=== PATIENT | male | born 1995 | race Caucasian/White ===

== ENCOUNTER 2017-12-04 11:17 | Emergency (ER) | payer BC ==
[~2017-12-04] VITALS: Ht 182.9 cm; Wt 124.7 kg
[2017-12-04 11:25] VITALS: BP 167/85
[2017-12-04] MEDS ORDERED: IBUPROFEN 400 MG TABLET. PO ONE (12:00)
--- NOTE | 2017-12-04 12:37 | RAD ---
Right tibia and fibula 2 views 12/04/2017. Reason for exam: Fell in a hole. Use of the right tibia and fibula show no fracture or dislocation. No foreign body is seen. IMPRESSION: No acute findings. Right ankle 2 views: No fracture or dislocation is seen. There is no apparent foreign body or joint narrowing. IMPRESSION: No acute bony abnormality. Electronically signed by: Cesar Mays Jr., MD (12/04/2017 12:34 PM) [facility] – [place]
--- NOTE | 2017-12-04 12:37 | RAD ---
Right tibia and fibula 2 views 12/04/2017. Reason for exam: Fell in a hole. Use of the right tibia and fibula show no fracture or dislocation. No foreign body is seen. IMPRESSION: No acute findings. Right ankle 2 views: No fracture or dislocation is seen. There is no apparent foreign body or joint narrowing. IMPRESSION: No acute bony abnormality. Electronically signed by: Cesar Mays Jr., MD (12/04/2017 12:34 PM) [facility] [place]
--- NOTE | 2017-12-04 12:41 | PHYS DOC ---
Past Medical History Past Medical History: No Pertinent History Past Surgical History: Other Additional Past Surgical Histo: LEFT ARM SURGERY Alcohol Use: None Drug Use: None Adult General Chief Complaint Chief Complaint: ANKLE PROBLEM HPI HPI Patient is a 22 year old male who presents with right ankle pain after he was walking home last night and stepped into a construction hole. The patient states the pain is mainly in his ankle but that it shoots up into his right calf. The patient is taking [id number] medication with mild relief. He is using crutches to ambulate. He denies loss of consciousness or any other injury. Review of Systems Review of Systems Constitutional: Denies fever or chills [] Respiratory: Denies cough or shortness of breath [] Cardiovascular: No additional information not addressed in HPI [] GI: Denies abdominal pain, nausea, vomiting, bloody stools or diarrhea [] : Denies dysuria or hematuria [] Musculoskeletal: See history of present illness Integument: Denies rash or skin lesions [] Neurologic: Denies headache, focal weakness or sensory changes [] Endocrine: Denies polyuria or polydipsia [] All other systems were reviewed and found to be within normal limits, except as documented in this note. Current Medications Current Medications Current Medications Medications (Trade) Dose Ordered Sig/Denisse Start Time Stop Time Status Last Admin Dose Admin Ibuprofen (Motrin) 800 mg 1X ONCE 12/04/17 12:00 12/04/17 12:01 DC 12/04/17 12:22 800 MG Allergies Allergies Allergies Coded Allergies Type Severity Reaction Last Updated Verified No Known Drug Allergies 12/04/17 No Physical Exam Physical Exam Constitutional: Well developed, well nourished, no acute distress, non-toxic appearance. [] Cardiovascular:Heart rate regular rhythm, no murmur [] Lungs & Thorax: Bilateral breath sounds clear to auscultation [] Abdomen: Bowel sounds normal, soft, no tenderness, no masses, no pulsatile masses. [] Skin: Warm, dry, no erythema, no rash. [] Back: No tenderness, no CVA tenderness. [] Extremities: Right ankle tenderness, no cyanosis, no clubbing, ROM intact, mild edema, flexion is intact with no evidence of Achilles tendon rupture. [] Neurologic: Alert and oriented X 3, normal motor function, normal sensory function, no focal deficits noted. [] Psychologic: Affect normal, judgement normal, mood normal. [] Current Patient Data Vital Signs Vital Signs Date Time Temp Pulse Resp B/P (MAP) Pulse Ox O2 Delivery O2 Flow Rate FiO2 12/04/17 11:25 98.2 90 16 167/85 (112) 96 Room Air 98.2 EKG EKG [] Radiology/Procedures Radiology/Procedures [] Course & Med Decision Making Course & Med Decision Making Pertinent Labs and Imaging studies reviewed. (See chart for details) []The patient was placed in an air cast. He is to take ibuprofen or Tylenol for pain. He is in agreement with this plan. Dragon Disclaimer DragSocitive Disclaimer This electronic medical record was generated, in whole or in part, using a voice recognition dictation system. Departure Departure Impression: Primary Impression: Ankle sprain Disposition: 01 HOME, SELF-CARE Condition: STABLE Referrals: NO PCP (PCP) Patient Instructions: Ankle Sprain Additional Instructions: You may take ibuprofen or Tylenol for pain. Wear the Aircast for comfort. Follow -up with your primary care provider in 3-4 days if not improving for possible referral to orthopedics. SHANTHI ALCANTAR APRN Dec 04, 2017 12:41
== END 2017-12-04 12:50 | disposition home or self-care (01) ==
LOC: ER 11:17
DX: S93.431A Sprain of tibiofibular ligament of right ankle, initial encounter (principal); W17.2XXA Fall into hole, initial encounter; Y93.01 Activity, walking, marching and hiking; Y92.89 Other specified places as the place of occurrence of the external cause; Y99.8 Other external cause status
CPT/HCPCS: 73590; 73610; 99284